=== PATIENT | male | born 1930 | race Caucasian/White ===

== ENCOUNTER → 2017-02-26 | Outpatient (CLI) | payer MEDICARE ==
--- NOTE | 2017-02-26 11:40 | RADIOLOGY REPORT PS360 ---
EXAM: LUMBAR SPINE 5 VIEWS HISTORY: BACK PAIN ORDERING PHYSICIAN: Reginald Maxwell MD PATIENT AGE: 86 years COMPARISON: Lateral chest radiograph of 10/18/2016 FINDINGS: Wedge compression changes are present at T11, T12, L1, L2, and inferior endplate of L3. These findings were present on the previous lateral chest radiograph. There is kyphosis of the lower thoracic spine. 6 mm anterolisthesis of L4 on L5 similar to the prior lumbar spine exam of 10/19/2012. There is severe degenerative disc disease at L5-S1. There is also minimal wedging of L4 which is age indeterminate. No destructive process. The SI joints have an unremarkable appearance. Facet arthritic changes are present at L4-5 and L5-S1. There is mild lumbar curvature convex right. There is diffuse osteopenia. Incidental bilateral nephrolithiasis IMPRESSION: 1. Multilevel compressive changes of the lower thoracic and lumbar spine as described above. Most of these are felt to be chronic present on previous exam of 10/18/2016. There is minimal wedging of the L4 vertebral body superiorly of age indeterminate 2. Degenerative disc disease at L5-S1 with facet arthritic change at L4-5 and L5-S1 3. Bilateral nephrolithiasis
== END ==
LOC: RAD 10:22
DX: M54.5 Low back pain (principal)

== ENCOUNTER → 2017-03-18 | Outpatient (CLI) | payer MEDICARE ==
--- NOTE | 2017-03-20 06:25 | RADIOLOGY REPORT PS360 ---
MRI-L-SPINE W/O HISTORY: Low back pain with left leg pain LUMBAGO W/LT SIDE SCIATICA ORDERING PHYSICIAN: Reginald Maxwell MD PATIENT AGE: 86 years COMPARISON: Radiograph of 02/26/2017 TECHNIQUE: Standard multiplanar multiecho sequences are performed without contrast. 3-D MIP and myelographic images are also rendered and reviewed FINDINGS: Normal alignment. The spinal cord ends at T12-L1 level. Mild lumbar scoliosis convex right measuring approximately 9 degrees. T11-T12: Mild chronic wedging of T11 anteriorly with degenerative disc disease. Small Schmorl's node along the superior endplate of T12. T12-L1: Degenerative disc disease with chronic moderate wedging of L1 with loss of height centrally of greater than 50% loss of height anteriorly of 50%. Kyphosis is present at that level with mild chronic retropulsion of the posterior superior aspect of L1. Mild bilateral foraminal narrowing. No canal stenosis. L1-L2: Mild concentric bulging disc with mild bilateral foraminal narrowing. L2-L3: Mild chronic wedging of L2 with loss of height anteriorly of 30% with bulging disc. Moderate left-sided foraminal narrowing with encroachment upon the exiting L2 nerve root. L3-L4: Degenerative disc disease with bulging disc along with facet and ligamentum flavum hypertrophy with moderate bilateral foraminal narrowing left greater than right with borderline canal stenosis. There is mild depression of the superior endplate of L4 which does not appear acute. L4-L5: Degenerative disc disease with bulging disc. There is 4 mm anterolisthesis of L4. The bulging disc slightly eccentric toward the right. Facet and ligamentum flavum hypertrophy is present and there is moderate right-sided foraminal narrowing and [id number] left-sided foraminal narrowing. Moderate right lateral recess narrowing. Borderline canal stenosis. L5-S1: Degenerative disc disease with bulging disc along with facet and ligamentum flavum hypertrophy with moderate to severe right-sided foraminal narrowing with encroachment upon the right L5 nerve root and mild to moderate left foraminal narrowing. There is increased T2 signal involving the posterior inferior endplate of L5 and may be due to small Schmorl's node. No extruded herniated disc are evident. IMPRESSION: 1. Moderate to severe lumbar spondylosis with multilevel degenerative disc disease along with facet and ligamentum flavum hypertrophy with bulging disc borderline canal stenosis and bilateral foraminal and lateral recess narrowing. 3 see above for detailed description at each level. 2. Chronic multilevel compression changes. No acute fracture apparent. 3. Mild kyphosis and lumbar scoliosis 4. No herniated disc
== END ==
LOC: RAD 11:00
DX: M54.42 Lumbago with sciatica, left side (principal); M62.81 Muscle weakness (generalized)

== ENCOUNTER → 2017-03-25 | Outpatient (CLI) | payer MEDICARE ==
[2017-03-25 20:32] LABS: BUN 25 mg/dL (7-18)
[2017-03-25 20:37] LABS: GFR (ESTIMATED) 48 ML/MIN (>60)
== END ==
LOC: LAB 18:18
PROVIDERS: Internal Medicine
DX: M54.42 Lumbago with sciatica, left side (principal); M81.0 Age-related osteoporosis without current pathological fracture; L89.322 Pressure ulcer of left buttock, stage 2; I87.2 Venous insufficiency (chronic) (peripheral); R29.898 Other symptoms and signs involving the musculoskeletal system; Z87.81 Personal history of (healed) traumatic fracture